=== PATIENT | male | born 1975 | race Caucasian/White ===

== ENCOUNTER 2025-05-30 08:11 | Outpatient (REF) | payer MEDICAID, SELFPAY ==
--- OUTSIDE RECORDS SUMMARY | 2025-05-29 09:15 | XMS_ITS | Encounter Summary ---
Author Organization [employer] Address [address] [facility] [address] [place] [address] Care Team Providers Care Grain Mixer Name Role Phone Ninfa Hatch DO Primary Care Provider [phone] Reason for Visit * Reason Comments new pt Encounter Details Date Type Department Care Team (Late st Contact Info) Description 05/29/2025 9:15 AM EST Office Visit [facility] [address], [place] [phone] Ninfa Hatch DO [address] [place], [place] [phone] Routine history and physical examination of adult (Primary Dx); Generalized anxiety disorder; Encounter for immunization Social History Tobacco Use Types Packs/Day Years Used Date Smoking Tobacco: Never Assessed Depression Answer Date Recorded Patient Health Questionnaire-9 Score 13 05/29/2025 Patient Health Questionnaire-9 Score 13 05/29/2025 Last PHQ-9: Questionnaire Data Not on file 1 07/29/2024 Depression Answer Date Recorded Patient Health Questionnaire-2 Score 0 05/29/2025 Comments Unknown Sex and Gender Information Value Date Recorded Sex Assigned at Unknown 05/22/2025 2:48 PM EST Legal Sex Male 11:56 AM EDT Gender Identity Choose not to disclose 2:48 PM EST Sexual Orientation Don't know 05/22/2025 2: 48 PM EST documented as of this encounter Last Filed Vital Signs Vital Sign Reading Time Taken Comments Blood Pressure 130/88 05/29/2025 9:05 AM EST Pulse 95 05/29/2025 9:05 AM EST Temperature 36.4 C (97.6 F) 05/29/2025 9:05 AM EST Respiratory Rate 21 05/29/2025 9:05 AM EST Oxygen Saturation 96% 05/29/2025 9:05 AM EST Inhaled Oxygen Concentration - - Weight 102 kg (224 lb 12.8 oz) 05/29/2025 9:05 A M EST Height 175.3 cm (5' 9 ) 05/29/2025 9:05 AM EST Body Mass Index 33.2 05/29/2025 9:05 AM EST documented in this encounter Functional Status * Over the past 2 weeks, how often have you been bothered by any of the following problems? Question Answer Date of Assessment Author Patient Health Questionnaire -2 Score 0 05/29/2025 9:08 AM Lilly Cruz MA * Little interest or pleasure in doing things Answer Date of Assessment Author Not at all 05/29/2025 9:08 AM Lilly Cruz MA * Feeling down, depressed, or hopeless Answer Date of Assessment Author Not at all 05/29/2025 9:08 AM Lilly Cruz MA * Trouble falling or staying asleep, or sleeping too much Answer Date of Assessment Author Nearly every day 05/29/2025 9:08 AM Lilly Cruz MA * Feeling tired or having little energy Answer Date of Assessment Author Several days 05/29/2025 9:08 AM Lilly Cruz MA * Poor appetite or overeating Answer Date of Assessment Author Not at all 05/29/2025 9:08 AM Lilly Cruz MA * Feeling bad about yourself - or that you are a failure or have let yourself or your family down Answer Date of Assessment Author Nearly every day 05/29/2025 9:08 AM Lilly Cruz MA * Trouble concentrating on things, such as reading the newspaper or watching television Answer Date of Assessment Author Nearly every day 05/29/2025 9:08 AM Lilly Cruz MA * Moving or speaking so slowly that other people could have noticed? Or the opposite - being so fidgety or restless that you have been moving around a lot more than usual. Answer Date of Assessment Author Nearly every day 05/29/2025 9:08 AM Lilly Cruz MA * Thoughts that you would be better off or hurting yourself in some way Answer Date of Assessment Author Not at all 05/29/2025 9:08 AM Lilly Cruz MA * Patient Health Questionnaire-9 Score Answer Date of Assessment Author 13 05/29/2025 9:08 AM Lilly Cruz MA * Over the last 2 weeks, how often have you been bothered by any of the following problems? Question Answer Date of Assessment Author Feeling nervous, anxious, or on edge 3 05/29/2025 9:08 AM Lilly Cruz MA Not being able to stop or co ntrol worrying 3 05/29/2025 9:08 AM Lilly Cruz MA Worrying too much about diff erent things 3 05/29/2025 9:08 AM Lilly Cruz MA Trouble relaxing 3 05/29/2025 9:08 AM Lilly Coronel MA Being so restless that it is hard to sit still 3 05/29/2025 9:08 AM Lilly Cruz MA Becoming easily annoyed or irritable 3 05/29/2025 9:08 AM Lilly Cruz MA Feeling afraid as if somethi ng awful might happen 3 05/29/2025 9:08 AM Lilly Cruz MA DAVID-7 Total Score 21 05/29/2025 9:08 AM Lilly Cruz MA * How difficult have these problems made it for you to do your work, take care of things at home, or get along with other people? Answer Date of Assessment Author Somewhat difficult 05/29/2025 9:08 AM Lilly Prieto MA documented as of this encounter Plan of Treatment Upcoming Encounters Date Type Department Care Team (Late st Contact Info) Description 07/04/2025 9:45 AM EST Office Visit [facility] [address] [place] [address] Ninfa Hatch DO [address] [place] [address] Scheduled Orders Name Type Priority Associated Diagnoses Orde r Schedule T4, Free Lab Routine Routine history and physical examination of adult Generalized anxiety disorder Expected: 05/29/2025 (Approximate), Expires: 05/29/2026 Vitamin D, 25-Hydroxy, Total, Immunoassay Lab Routine Routine history and physical examination of adult Generalized anxiety disorder Expected: 05/29/2025 (Approximate), Expires: 05/29/2026 Lipid Panel, Standard Lab Routine Routine history and physical examination of adult Generalized anxiety disorder Expected: 05/29/2025 (Approximate), Expires: 05/29/2026 TSH Lab Routine Routine history and physical examination of adult Generalized anxiety disorder Expected: 05/29/2025 (Approximate), Expires: 05/29/2026 Hepatic Function Panel Lab Routine Routine history and physical examination of adult Generalized anxiety disorder Expected: 05/29/2025 (Approximate), Expires: 05/29/2026 Hemoglobin A1c Lab Routine Routine history and physical examination of adult Generalized anxiety disorder Expected: 05/29/2025 (Approximate), Expires: 05/29/2026 Basic Metabolic Panel Lab Routine Routine history and physical examination of adult Generalized anxiety disorder Expected: 05/29/2025 (Approximate), Expires: 05/29/2026 CBC Lab Routine Routine history and physical examination of adult Generalized anxiety disorder Expected: 05/29/2025, Expires: 05/29/2026 Albumin, Random Urine W/Creatinine Lab Routine Routine history and physical examination of adult Generalized anxiety disorder Expected: 05/29/2025 (Approximate), Expires: 05/29/2026 Hepatitis B surface antigen, EIA Lab Routine Routine history and physical examination of adult Generalized anxiety disorder Expected: 05/29/2025 (Approximate), Expires: 05/29/2026 Chlamydia/N. Gonorrhoeae RNA, TMA, Urogenitial Microbiology Routine Routine history and physical examination of adult Generalized anxiety disorder Ordered: 05/29/2025 HIV-1/2 Antigen and Antibodies, Fourth Generation, with Reflexes Lab Routine Routine history and physical examination of adult Generalized anxiety disorder Expected: 05/29/2025 (Approximate), Expires: 05/29/2026 Hepatitis C Antibody with Reflex to HCV, RNA, Quantitative, Real-Time PCR Lab Routine Routine history and physical examination of adult Generalized anxiety disorder Expected: 05/29/2025, Expires: 05/29/2026 RPR (Monitor) with Reflex to Titer Lab Routine Routine history and physical examination of adult Generalized anxiety disorder Expected: 05/29/2025, Expires: 05/29/2026 Hepatitis B Surface Antibody, Qualitative Lab Routine Routine history and physical examination of adult Generalized anxiety disorder Expected: 05/29/2025 (Approximate), Expires: 05/29/2026 Hepatitis A Antibody, Total Lab Routine Routine history and physical examination of adult Generalized anxiety disorder Expected: 05/29/2025 (Approximate), Expires: 05/29/2026 Hepatitis B Core Antibody, Total Lab Routine Routine history and physical examination of adult Generalized anxiety disorder Expected: 05/29/2025 (Approximate), Expires: 05/29/2026 T-SPOT .TB Lab Routine Routine history and physical examination of adult Generalized anxiety disorder Expected: 05/29/2025 (Approximate), Expires: 05/29/2026 documented as of this encounter Visit Diagnoses Diagnosis Routine history and physical examination of adult- Primary Generalized anxiety disorder Encounter for immunization documented in this encounter Additional Health Concerns Assessment Noted Time PHQ-9 Depression Total Score: 13 025 9:08 AM EST documented as of this encounter Care Teams Grain Mixer Relationship Specialty Start Date End Date Ninfa Hatch DO [address] [place] [phone] PCP - General Family Medicine 05/29/25 documented as of this encounter
--- OUTSIDE RECORDS SUMMARY | 2025-05-30 08:26 | XMS_ITS | Encounter Summary ---
Author Organization [employer] Address [address] [facility] [address] [place] [address] Care Team Providers Care Beekeeper Name Role Phone Ninfa Hatch Primary Care Provider [phone] Encounter Details Date Type Department Care Team (Latest Contact Info) Description 05/29/2025 Travel Social History Tobacco Use Types Packs/Day Years [...] PM EST documented as of this encounter Functional Status * Over the [...] Description 07/04/2025 9:45 AM EST Office Visit [facility] [address] [place] [address] Ninfa Hatch DO [address] [place] [address] documented as of this encounter Visit Diagnoses Not on filedocumented in this encounter Additional Health Concerns Assessment Noted Time PHQ-9 Depression Total Score: 13 025 9:08 AM EST documented as of this encounter Care Teams Beekeeper Relationship Specialty Start Date End Date Ninfa Hatch DO [address] [place] [address] PCP - General Family Medicine 05/29/25 documented as of this encounter
--- OUTSIDE RECORDS SUMMARY | 2025-05-30 08:26 | XMS_ITS | Clinical Summary ---
Author Organization [facility] Address [address] [facility] [address] [place] [address] Care Team Providers Care Side Puller Name Role Phone Ninfa Hatch DO Primary Care Provider Allergies Active Allergy Reactions Criticality Noted Date Comments Caffeine Hives 05/29/2025 Medications telmisartan-hydr oCHLOROthiazide (Micardis HCT) 80-12.5 MG tablet Take 1 tablet by mouth Once per day. 90 tablet 1 05/29/2025 Active ALPRAZolam XR (Xanax XR) 1 MG 24 hr tablet Take 1 mg by mouth every 6 (six) hours if needed for anxiety. Do not crush, chew, or split. Active sertraline (Zoloft) 25 MG tablet Take 1 tablet (25 mg) by mouth Once per day. 30 tablet 2 05/29/2025 11:34 AM EST 05/29/2025 6 Active Active Problems Problem Noted Date Diagnosed Date Generalized anxiety disorder 05/29/2025 Encounters Date Type Department Care Team Description 05/29/2025 9:15 AM EST Office Visit [facility] [address] [place] [phone] Ninfa Hatch DO Routine history and physical examination of adult (Primary Dx); Generalized anxiety disorder; Encounter for immunization 05/29/2025 Travel 05/24/[address] [address] Ninfa Hatch DO Chart Prep 05/19/2025 Patient Outreach [address] [address] Ninfa Hatch DO Pre-visit Planning ((Unable to reach for PVP screening, LVM) to be completed in office ) from Last 3 Months Immunizations Immunization Administration Dates Next Due Influenza, seasonal, injectable, preservative fr ee 05/29/2025 Pfizer Covid-19 Vaccine 12+ 05/29/2025 Family History Medical History Relation Name Comments Hypertension Father Parkinsonism Father Hypertension Mother Relation Name Status Comments Father Mother Social History Tobacco Use Types Packs/Day Years [...] Don't know 05/22/2025 2: 48 PM EST Last Filed Vital Signs Vital Sign Reading [...] Mass Index 33.2 05/29/2025 9:05 AM EST Plan of Treatment Upcoming Encounters Date Type Department Care Team (Late st Contact Info) Description 07/04/2025 9:45 AM EST Office Visit [facility] [address] [place] [address] Ninfa Hatch DO [address] [place] [address] Health Maintenance Due Date Last Done Comments CT Colonography 1973 Colonoscopy 1973 Colorectal Cancer Screening 1973 FIT DNA/Cologuard 1973 FIT 1973 FOBT 1973 HIV Screening 1973 Lipid Panel 1973 SDOH Screening 1973 Sigmoidoscopy 1973 Disability Screening 1973 Tobacco Screening 1985 Family Planning (PISQ) 1988 Hepatitis C Screening 1991 DTaP/Tdap/Td Vaccines (1 - Tdap) 1992 Hepatitis B Vaccines (1 of 3 - 19+ 3-dose series) 1992 Pneumococcal Vaccine: 50+ Years (1 of 1 - PCV) 2023 Zoster Vaccines (1 of 2) 2023 Depression Monitoring 11/26/2025 05/29/2025 , 05/29/2025 Alcohol/Substance Use Screening 05/29/2026 05/29/2025 RSV Patients and Patients Aged 60 years or older (1 - 1-dose 75+ series) 2048 COVID-19 Vaccine Completed 05/29/2025 Influenza Vaccine Completed 05/29/2025 HIB Vaccines Aged Out No longer eligi ble based on patient's age to complete this topic HPV Vaccines Aged Out No longer eligi ble based on patient's age to complete this topic Hepatitis A Vaccines Aged Out No long er eligible based on patient's age to complete this topic IPV Vaccines Aged Out No longer eligi ble based on patient's age to complete this topic Meningococcal B Vaccine Aged Out No l onger eligible based on patient's age to complete this topic Meningococcal Vaccine Aged Out No [place] eligible based on patient's age to complete this topic RSV under 20 months Aged Out No longe r eligible based on patient's age to complete this topic Rotavirus Vaccines Aged Out No longer eligible based on patient's age to complete this topic Insurance [employer] H[employer] FULL Care Teams Side Puller Relationship Specialty Start Date End Date Ninfa Hatch DO [address] [place] [phone] PCP - General Family Medicine 05/29/25
[2025-05-30 11:57] LABS: Hematocrit 48.6 % (42.0-52.0); Hemoglobin 15.8 g/dl (14.0-18.0); Mean Corpuscular HGB Conc 32.5 g/dl (31.0-36.0); Mean Corpuscular Hemoglobin 29.8 pg (27.0-33.0); Mean Corpuscular Volume 91.7 fL (80.0-98.0); NRBC Abs Auto 0.000 X10*3/uL (0.0-0.012); NRBC Pct Auto 0.0 /100WBC (0.0-0.2); Platelet Count 283 X10*3/uL (160-400); Red Blood Count 5.30 X10*6/uL (4.60-5.80); White Blood Count 7.2 X10*3/uL (4.8-10.8)
[2025-05-30 12:15] LABS: Alanine Aminotransferase 34 U/L (0-40); Albumin Level 4.8 g/dL (3.5-5.0); Alkaline Phosphatase 84 U/L (39-117); Anion Gap 11 (12-20); Aspartate Amino Transferase 29 U/L (5-37); Blood Urea Nitrogen 18 mg/dL (9-16); Calcium 10.0 mg/dL (8.4-10.2); Carbon Dioxide 31 mmol/L (22-29); Chloride 99 mmol/L (96-108); Cholesterol 285 mg/dL (<200); Estimated Glomerular Filt Rate > 60; HDL Cholesterol 59 mg/dL (>40); Potassium 4.3 mmol/L (3.3-5.1); Sodium 137 mmol/L (135-145); Total Protein 7.8 g/dL (6.5-8.0); Triglycerides 347 mg/dL (<150)
[2025-05-30 12:29] LABS: Microalbum/Creatinine Ratio Ur 847.3 ug/mg cr (<30)
[2025-05-30 12:37] LABS: HBS Num1 0.06 mIU/mL (0-7.99); HBc Num1 0.08 S/CO (0.00-0.79); HBsAGNum1 0.36 S/CO (0.00-0.99); HIV Num 1 0.10 S/CO (0.00-0.99); Hepatitis B Surface Antigen Negative (Negative); ~HepC Num1 0.12 S/CO (0.00-0.79); ~Hepatitis B Surface Antibody NONREACTIVE (Nonreactive); ~Hepatitis C Antibody Nonreactive (Nonreactive)
[2025-05-30 12:39] LABS: Free T4 (Free Thyroxine) 1.01 ng/dL (0.71-1.85); Thyroid Stimulating Hormone 2.79 uIU/mL (0.32-4.0)
[2025-06-02 01:24] LABS: TS Negative Control Passed; TS Panel A 0; TS Panel B 0; TS Positive Control Passed; TSpotTB Negative (Negative)
[2025-06-02 06:03] LABS: ~Hepatitis A Antibody IgG 10.31 S/CO (0.00-0.99)
== END 2025-05-30 08:12 | disposition home or self-care (01) ==
LOC: HO.HHCL 08:11
PROVIDERS: Family Medicine
DX: Z00.00 Encounter for general adult medical examination without abnormal findings (principal); Z11.1 Encounter for screening for respiratory tuberculosis; Z11.4 Encounter for screening for human immunodeficiency virus [HIV]; Z11.59 Encounter for screening for other viral diseases; F41.1 Generalized anxiety disorder; Z20.2 Contact with and (suspected) exposure to infections with a predominantly sexual mode of transmission
CPT/HCPCS: 36415; 80048; 80061; 80076; 82043; 82306; 82570; 83036; 84439; 84443; 85027; 86481; 86592; 86704; 86706; 86708; 86803; 87340; 87389